=== PATIENT | male | born 1975 | race African-American/Black ===

== ENCOUNTER 2018-04-30 20:14 | Emergency (ER) | payer OTHER ==
[~2018-04-30] VITALS: Ht 185.4 cm; Wt 102.1 kg
[2018-04-30 20:40] VITALS: BP 147/61
[2018-04-30] MEDS ORDERED: KETOROLAC TROMETH 60MG/2ML VIAL IM ONE (21:30)
== END 2018-04-30 23:07 | disposition home or self-care (01) ==
LOC: ER 20:14
DX: G89.29 Other chronic pain (principal); M54.5 Low back pain
CPT/HCPCS: 72100; 96372; 99284; J1885